=== PATIENT | female | born 1930 | race African-American/Black ===

== ENCOUNTER 2017-02-03 00:25 | Emergency (ER) | payer OTHER ==
[~2017-02-03] VITALS: Ht 154.9 cm; Wt 77.1 kg
[~2017-02-03 00:25] MED LIST: ANASTROZOLE1 MG PO; ASPIRIN CHILDRE81 MG PO; CENTRUM SILVER1 TA1 PO; HYDRODIURIL 2525 MG PO; JANUVIA25 MG PO; LISINOPRIL40 MG PO; METAGLIP PO; METFORMIN HYDR500 MG PO; MEVACOR20 MG PO; PLAVIX 75MG TAB75 MG PO
[2017-02-03 01:45] VITALS: BP 139/63
--- NOTE | 2017-02-03 01:50 | ED NOSE COMPLAINT ---
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 Source: patient, old records, friend Exam Limitations: no limitations Vital Signs & Intake/Output Vital Signs & Intake/Output Vital Signs Date Time Temp Pulse Resp B/P B/P Pulse O2 O2 Flow FiO2 Mean Ox Delivery Rate 02/03 0145 98.4 72 18 139/63 99 Room Air Allergies Coded Allergies: MDX - Amlodipine (AMLODIPINE) (Intermediate, EDEMA 07/29/14) MDX - Tramadol (TRAMADOL) (Intermediate, UPSET STOMACH 07/29/14) Reconcile Medications Anastrozole 1 MG TABLET 1 TAB PO DAILY CANCER (Reported) Clopidogrel Bisulfate (Plavix) 75 MG TAB 1 TAB PO DAILY BLOOD THINNING Glipizide/Metformin Hydrochl (Metaglip 2.5 MG-500 MG) 1 TAB TAB 2 TAB PO DAILY DIABETES (Reported) Glipizide/Metformin Hydrochl (Metaglip 2.5 MG-500 MG) 1 TAB TAB 1 TAB PO LUNCH DIABETES (Reported) Hydrochlorothiazide (Hydrodiuril 25 MG Tab) 25 MG TABLET 1 TAB PO DAILY WATER PILL (Reported) Lisinopril 40 MG TABLET 1 TAB PO DAILY HEART (Reported) Lovastatin (Mevacor) 20 MG TABLET 1 TAB PO DAILY CHOLESTEROL (Reported) METFORMIN HCL (Metformin Hydrochloride) 500 MG TABLET 1 TAB PO QPM DIABETES ( Reported) Multivitamin, Minerals, and (Centrum Silver) 1 TAB TAB 1 TAB PO DAILY SUPPLEMENT (Reported) Sitagliptin Phosphate (Januvia) 25 MG TABLET 1 TAB PO DAILY DIABETES ( Reported) Triage Note: TRIAGE: PATIENT TO ER FROM HOME REPORTING INTERMITTENT EPITAXIS TONIGHT, PATIENT HX AFIB, REPORTS "DON'T THINK I'M ON BLOODTHINNERS. IT'S ALL IN YOUR COMPUTER THOUGH." PT UNABLE TO PROVIDE ADDITIONAL MED LIST INFO. NO ACTIVE BLEEDING NOTED SINCE ARRIVAL TO ER. Triage Nurses Notes Reviewed? yes HPI: For the past 2 days patient has been having intermittent nosebleed from the right nostril. There is no pain. There is no lightheadedness. There is no shortness of breath. No nausea or vomiting. There are no fevers chills. Tonight the bleeding lasted longer than it has over the past few days so she became concerned and comes in for evaluation. Bleeding controlled prior to arrival to the emergency room. Past History Travel History Traveled to [place] past 21 day No Medical History Any Pertinent Medical History? 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 FATHER (Stroke). Hx Contributory? No Review of Systems Review of Systems Constitutional: Reports: no symptoms. EENTM: Reports: see HPI, epistaxis. Respiratory: Reports: no symptoms. Cardiovascular: Reports: no symptoms. Skin: Reports: no symptoms. Immunologic/Allergic: Reports: no symptoms. Physical Exam Physical Exam General Appearance: well developed/nourished, alert, awake Eyes: Bilateral: PERRL, EOMI. Nose: dried blood Mouth/Throat: normal mouth inspection, pharynx normal Cardiovascular/Respiratory: normal breath sounds, normal peripheral pulses, regular rate/rhythm, no respiratory distress Neurologic/Psych: no motor/sensory deficits, awake, alert, oriented x 3, normal gait, normal mood/affect Progress Differential Diagnoses I considered the following diagnoses in my evaluation of the patient: [EPISTAXIS ] Plan of Care: PROS AND CONS DISCUSSED WITH MS. BORGES. SHE WOULD PREFER TO HAVE PACKING INSERTED. Initial ED EKG: none Departure Departure Disposition: HOME OR SELF CARE Condition: Stable Clinical Impression Primary Impression: Epistaxis Referrals: [facility],PAOLA BENJAMIN MD,ULICES (PCP/Family) Additional Instructions: KEEP PACKING IN RETURN FOR ANY CONCERNS FOLLOW UP WITH DR. BARKSDALE Departure Forms: Customer Survey General Discharge Information Procedures Epistaxis/Nasal Foreign Body Status: no bleeding Inspected With: otoscope Bleeding Site: ANTERIOR SEPTUM Nasal Rocket: Right: Inserted Anterior.
== END 2017-02-03 05:28 ==
LOC: ERH 00:25
DX: R04.0 Epistaxis (principal)
CPT/HCPCS: 99282